=== PATIENT | male | born 1980 | race Caucasian/White ===

== ENCOUNTER 2016-05-30 16:24 | Emergency (ER) | payer MEDICAID ==
[2016-05-30] MEDS ORDERED: IBUPROFEN 600 MG TABLET PO STA (17:25)
[2016-05-30] MEDS ORDERED: diphenhydrAMINE 25 MG CAPSULE PO STA (17:26)
[2016-05-30] MEDS ORDERED: traMADol 50 MG TABLET PO STA (17:26)
[2016-05-30] MEDS ORDERED: DEXAMETHASONE 10 MG/ML VIAL PO STA (17:26)
[2016-05-30] MEDS ORDERED: DEXAMETHASONE 10 MG/ML VIAL ONE (17:39)
[2016-05-30] MEDS ORDERED: traMADol 50 MG TABLET PO ONE (17:39)
[2016-05-30] MEDS ORDERED: IBUPROFEN 600 MG TABLET PO ONE (17:39)
[2016-05-30] MEDS ORDERED: CHERRY SYRUP 10 ML UDC PO ONE (17:39)
[2016-05-30] MEDS ORDERED: diphenhydrAMINE 25 MG CAPSULE PO ONE (17:40)
== END 2016-05-30 18:46 | disposition home or self-care (01) ==
DX: S16.1XXA Strain of muscle, fascia and tendon at neck level, initial encounter (principal); W19.XXXA Unspecified fall, initial encounter; Y92.009 Unspecified place in unspecified non-institutional (private) residence as the place of occurrence of the external cause; B86 Scabies; L29.9 Pruritus, unspecified; F17.200 Nicotine dependence, unspecified, uncomplicated
CPT/HCPCS: 72125; 99283; 99284; A9270

== ENCOUNTER 2016-06-06 09:52 | Emergency (ER) | payer MEDICAID ==
[2016-06-06] MEDS ORDERED: SULFAMETH/TRIMETH DS 800/160 MG TABLET PO STA (11:08)
[2016-06-06] MEDS ORDERED: HYDROcod/ACETAM 5/325 MG TABLET PO STA (11:08)
[2016-06-06] MEDS ORDERED: HYDROcod/ACETAM 5/325 MG TABLET ONE (11:12)
[2016-06-06] MEDS ORDERED: SULFAMETH/TRIMETH DS 800/160 MG TABLET PO ONE (11:12)
== END 2016-06-06 11:18 | disposition home or self-care (01) ==
DX: L02.811 Cutaneous abscess of head [any part, except face] (principal); B85.0 Pediculosis due to Pediculus humanus capitis; Z86.711 Personal history of pulmonary embolism; E84.9 Cystic fibrosis, unspecified; F17.200 Nicotine dependence, unspecified, uncomplicated
CPT/HCPCS: 99283; A9270

== ENCOUNTER 2016-06-21 14:21 | Emergency (ER) | payer MEDICAID | END 2016-06-21 15:27 | disposition home or self-care (01) | DX: L02.811 Cutaneous abscess of head [any part, except face] (principal); Z86.711 Personal history of pulmonary embolism; Z87.09 Personal history of other diseases of the respiratory system; Z59.0 Homelessness; F17.200 Nicotine dependence, unspecified, uncomplicated ==

== ENCOUNTER 2023-04-02 18:02 | Emergency (ER) | payer MEDICAID ==
[2023-04-02 18:14] VITALS: BP 140/90; O2SAT 98
== END 2023-04-02 19:00 | disposition left against medical advice (07) ==
LOC: ED 18:02
DX: Z53.21 Procedure and treatment not carried out due to patient leaving prior to being seen by health care provider (principal)

== ENCOUNTER 2023-04-03 01:18 | Emergency (ER) | payer MEDICAID ==
--- NOTE | 2023-04-03 02:40 | ED Physician Documentation ---
PD HPI LOWER EXT INJURY - Stated complaint Stated Complaint: FOOT PX - History obtained from History obtained from: Patient - History of Present Illness PD HPI LOW EXT INJURY LOCATION: Left, Foot PD PAST MEDICAL HISTORY - Past Medical History Cardiovascular: None, Pulmonary embolism Respiratory: None, Cystic fibrosis - Past Surgical History Past Surgical History: Yes General: Appendectomy - Present Medications Home Medications: Ambulatory Orders Medication Instructions Recorded Confirmed Chlorhexidine Gluconate [Hibiclens] 10 ml TP DAILY #473 ml 06/06/16 Hydrocodone/Acetaminophen [[place] 1 each PO Q6H PRN #15 tablet 06/06/16 5-325 Tablet] Malathion [Ovide] 59 ml TP ONCE #1 bottle 06/06/16 Sulfamethoxazole/Trimethoprim 1 each PO BID #14 tablet 06/06/16 [Bactrim Ds Tablet] Clindamycin [Cleocin] 150 mg PO Q6H #28 capsule 06/21/16 HYDROcod/ACETAM 5/325 [[place] 5/325] 1 - 2 ea PO Q6H PRN #15 tablet 06/21/16 Lanolin Alcohol/Mo/W.pet/[place] 1 applic TP BID #454 gm 04/03/23 [Eucerin Cream] Mupirocin 2% Oint [Bactroban 2% 1 applic TOP TID #15 gm 04/03/23 Oint] - Allergies Allergies/Adverse Reactions: Allergies Allergy/AdvReac Type Severity Reaction Status Date / Time No Known Drug Allergies Allergy Verified 04/03/23 02:42 - Social History Does the pt smoke?: Yes Smoking Status: Current every day smoker Does the pt drink ETOH?: Yes Does the pt have substance abuse?: No - Immunizations Immunizations are current?: Yes Results - Vitals Vitals: Vital Signs - 24 hr 04/03/23 04/03/23 02:35 03:33 Temperature 36.8 C Heart Rate 100 89 Respiratory 20 19 Rate Blood Pressure 155/109 H 141/90 H O2 Saturation 97 99 Oxygen O2 Source Room air PD Medical Decision Making - ED course Complexity details: considered differential (he has had soreness of the feet for week or more, with now increased pain focally at left ball of the foot near great toe MT head. ), d/w patient Social Determinants of Health: he was seem to be in hospital lobby earlier but did not check in. Did check in and left without being seen. Then this visit, he was not answering to nurse call for triage and was found to be in [facility] restroom smoking meth apparently. Deputies were called. He was triaged adn brought into department, where he was cooperative and interacting sociably. I evaluated and treated the patient. Given the circumstances though, it did not seem appropriate for the patient to stay in the [facility] or [facility] accessible areas. So even though was during the night and buses not running yet, we did ask the Deputies to ask the patient to leave the hospital after he was discharged. They did so. They were not arresting him, but excorting him off hospital property to my knowlege. ED course: the patient is undomeciled and has single pair of sneakers and socks, he ssays they are wet and damp often. Feet cold often. He states he nees another pair of socks. Has whitish appearanc of skin on plantar area generally whole of both feet. No redness nor swelling. No skin lesions dorsum of foot. The skin appearance is of trench foot, with deeper layer blistering/loosening of the skin. There is partial peeling loose of the skin in the area that is hurting. I trimmed the overlying deap partial skin soft work wrapper layer and examiner expossing the deeper layer. No fatty tissue seem. There is some redness of the skin in the corner of this rounded area (about 1-2 cm). No FB nor purulence. Departure - Departure Disposition: 01 Home, Self Care Clinical Impression: Poor social situation, Substance abuse Trench feet Qualifiers: Encounter type: initial encounter Laterality: unspecified laterality Qualified Code(s): T69.029A - Immersion foot, unspecified foot, initial encounter Condition: Stable Record reviewed to determine appropriate education?: Yes Prescriptions: Mupirocin 2% Oint [Bactroban 2% Oint] 1 applic TOP TID #15 gm Lanolin Alcohol/Mo/W.pet/[place] [Eucerin Cream] 1 applic TP BID #454 gm Comments: Your skin has thickened and causing deep loosening of the skin layer. This comes from over a wet feet and socks and removal of the skin oils that keep it softer. Try to swap out socks and allow some to get dry in your feet to dry out periodically. You do have an open sore where the skin had been loose. I did trim that off. We want to make sure that does not get infected so clean best you can and apply the light bit of mupirocin antibiotic ointment to the area. Covered over with a bandage. Otherwise for your skin of the feet, apply Eucerin ointment once or twice daily to help provides a water barrier and some protectant and oils back to the skin. This should allow them to heal up a little better. Forms: PCP List Discharge Date/Time: 04/03/23 03:47
[2023-04-03] MEDS: MUPIROCIN 2% OINT 1 GM TOP STA (03:05)
[2023-04-03] MEDS: ACETAMINOPHEN 500 MG TABLET PO STA (03:06)
[2023-04-03 03:44] VITALS: BP 141/90; O2SAT 99
== END 2023-04-03 03:47 | disposition home or self-care (01) ==
LOC: ED 01:18
DX: T69.022A Immersion foot, left foot, initial encounter (principal); F19.10 Other psychoactive substance abuse, uncomplicated; F17.200 Nicotine dependence, unspecified, uncomplicated
CPT/HCPCS: 97597; 99282; 99283; A9270

== ENCOUNTER 2023-06-20 00:52 | Emergency (ER) | payer MEDICAID ==
[2023-06-20 01:18] VITALS: O2SAT 100
--- NOTE | 2023-06-20 02:25 | ED Physician Documentation ---
History of Present Illness - Stated complaint Stated Complaint: R FOOT PX - Chief complaint Chief Complaint: Trauma Ext - History obtained from History obtained from: Patient - Additonal information Additional information: HPI from patient. Patient complains of right ankle pain due to injury sustained yesterday. Patient says he was dancing when he struck a metallic object on the floor, experienced sudden onset of right ankle pain and swelling. The pain and swelling have subsequently, gradually worsened. The pain is exacerbated with weight-bearing, palpation. Pain is partially ameliorated with rest and elevation of the right ankle. Review of Systems Musculoskeletal: reports: Joint pain, Joint swelling, Pain with weight bearing Neurologic: denies: Focal weakness, Numbness PD PAST MEDICAL HISTORY - Past Medical History Past Medical History: Yes Cardiovascular: None, Pulmonary embolism Respiratory: None, Cystic fibrosis - Past Surgical History Past Surgical History: Yes General: Appendectomy - Present Medications Home Medications: Ambulatory Orders Medication Instructions Recorded Confirmed No Known Home Medications 06/20/23 06/20/23 - Allergies Allergies/Adverse Reactions: Allergies Allergy/AdvReac Type Severity Reaction Status Date / Time No Known Drug Allergies Allergy Verified 06/20/23 01:09 - Social History Does the pt smoke?: Yes Smoking Status: Current every day smoker Does the pt drink ETOH?: Yes Does the pt have substance abuse?: No - Immunizations Immunizations are current?: Yes - POLST Patient has POLST: No PD ED PE NORMAL - Vitals Vital signs reviewed: Yes - General General: Alert and oriented X 3, No acute distress (asleep , awakens to voice with gentle tactile stimulation (shoulder shake)), Well developed/nourished PD ED PE EXPANDED - Extremities Extremities: Other (mild swelling and TTP of right ankle, medial and lateral aspects. no gross deformity) Results - Vitals Vitals: Oxygen O2 Source Room air - Rads (name of study) right ankle xrays Relevant Findings:: Prelim report reviewed, EMP independent interpretation of test (I reviewed these images my interpretation is: No evidence of injury including no fracture, dislocation), See rad report PD Medical Decision Making - ED course Complexity details: reviewed results, re-evaluated patient, considered differential, d/w patient ED course: Unremarkable right ankle x-rays. An Oscar wrap is placed for stability and counter-pressure. Results d/w patient, return precautions reviewed Departure - Departure Disposition: 01 Home, Self Care Clinical Impression: Right ankle sprain Condition: Good Instructions: ED Bandage Elastic Wrap, ED Sprain Ankle Comments: There is no evidence of injury on the x-rays; specifically, no evidence of fracture nor dislocation. At this point, I suspect that you sprained the ankle. Realize that sprains do not show up on x-rays. Fortunately, the large majority of sprains will heal without any specific treatment beyond rest, compression (OSCAR wrap), and anti-inflammatory medication such as ibuprofen as needed per label instructions Forms: PCP List Discharge Date/Time: 06/20/23 03:21
[2023-06-20 03:28] VITALS: BP 126/67
--- NOTE | 2023-06-20 08:24 | XRAY Report ---
PROCEDURE: Ankle 3+V RT INDICATIONS: injury, pain/swelling TECHNIQUE: 3 views of the ankle were acquired. COMPARISON: None. FINDINGS: Bones: No fractures or dislocations. Ankle mortise is normally aligned. No suspicious bony lesions . Soft tissues: No tibiotalar joint effusion. Achilles tendon appears normal. IMPRESSION: No visualized acute fracture or dislocation. However, occult injury cannot be excluded. Recommend maria fernanda rt interval imaging follow-up in 7-10 days as clinically indicated for additional evaluation. Reviewed by: Patrica Haddad MD on 06/20/2023 8:23 AM PDT Approved by: Patrica Haddad MD on 06/20/2023 8:23 AM PDT Station ID: [id number]
== END 2023-06-20 03:21 | disposition home or self-care (01) ==
LOC: ED 00:52
DX: S93.401A Sprain of unspecified ligament of right ankle, initial encounter (principal); X58.XXXA Exposure to other specified factors, initial encounter; Y93.41 Activity, dancing; F17.200 Nicotine dependence, unspecified, uncomplicated
CPT/HCPCS: 99283